=== PATIENT | female | born 1955 | race American Indian/Alaskan Native ===

== ENCOUNTER 2018-11-14 23:45 | Inpatient (IN) | payer MEDICARE, OTHER ==
[~2018-11-14] VITALS: Ht 152.4 cm; Wt 93.6 kg
[~2018-11-14 23:45] MED LIST: ALBU8HFA PO; AMIT150T PO; ATOR10TA70 PO; BETH5TAB PO; CLOP75TA33 PO; FERR325T28 PO; FURO40TA4 PO; GABA-530 PO; INSU100V11 SQ; INSU100V9 SQ; ISOS30TA6 PO; LEVO150T8 PO; LEVO500T2 PO; METO-384 PO; MONT10TA24 PO; NITR0.4T PO; PANT40TA4 PO; POTA20TA19 PO
[2018-11-14] MEDS: adenosine 3mg/ml 2ml vial IV ONE (23:53)
[2018-11-15] MEDS: adenosine 3mg/ml 2ml vial IV ONE (00:12)
[2018-11-15] MEDS ORDERED: diltiazem 5mg/ml 5ml inj. IV STA (00:20)
[2018-11-15] MEDS ORDERED: magnesium 2GM in 50ml NS 50 ML IV ONE (00:30)
[2018-11-15 00:48] LABS: CLARITY,URINE CLOUDY (Clear); COLOR,URINE YELLOW (Yellow); GLUCOSE, URINE NEGATIVE (Neg); KETONES,URINE NEGATIVE (Neg); LEUKOCYTE ESTERASE ,URINE TRACE (Neg); NITRITES, URINE NEGATIVE (Neg); OCCULT BLOOD,URINE NEGATIVE (Neg); PROTEIN,URINE NEGATIVE (Neg)
[2018-11-15 00:49] LABS: BASOPHILS # (AUTO) 0.1 X10'3 (0-0.2); BASOPHILS % (AUTO) 0.7 % (0-1); EOSINOPHILS # (AUTO) 0.1 X10'3 (0-0.9); EOSINOPHILS % (AUTO) 0.6 % (0-6); HEMATOCRIT 37.8 % (35.0-45.0); HEMOGLOBIN 12.2 g/dl (12.0-16.0); LYMPHOCYTES # (AUTO) 0.4 X10'3 (1.1-4.8); LYMPHOCYTES % (AUTO) 3.2 % (21-51); MEAN CORPUSCULAR HEMOGLOBIN 29.3 PG (27.0-31.0); MEAN CORPUSCULAR HGB CONC 32.3 % (33.0-36.5); MEAN CORPUSCULAR VOLUME 90.6 FL (78-98); MEAN PLATELET VOLUME 7.7 FL (7.4-10.4); MONOCYTES % (AUTO) 0.3 % (2-12); NEUTROPHILS # (AUTO) 10.6 X10'3 (1.8-7.7); NEUTROPHILS % (AUTO) 95.2 % (42-75); PLATELET COUNT 236 X10'3 (140-440); RED BLOOD COUNT 4.17 X10'6 (4.20-5.60); RED CELL DISTRIBUTION WIDTH 13.2 % (11.5-14.5); WHITE BLOOD COUNT 11.2 X10'3 (4.5-11.0)
[2018-11-15 00:57] LABS: ALANINE AMINOTRANSFERASE 22 U/L (12-78); ALBUMIN 2.8 G/DL (3.4-5.0); ALBUMIN/GLOBULIN RATIO 0.7 (1.1-1.5); ALKALINE PHOSPHATASE 125 IU/L (46-116); ANION GAP 15 (8-16); ASPARTATE AMINO TRANSFERASE 25 U/L (10-37); BILIRUBIN,TOTAL 0.9 MG/DL (0.1-1.0); BLOOD UREA NITROGEN 16 MG/DL (7-18); CALCIUM 7.8 MG/DL (8.5-10.1); CHLORIDE 103 MMOL/L (99-107); CREATININE 1.14 MG/DL (0.40-0.90); GLUCOSE 140 MG/DL (70-104); MAGNESIUM 1.4 MG/DL (1.5-2.4); POTASSIUM 3.3 MMOL/L (3.5-5.1); SODIUM 138 MMOL/L (135-145); TOTAL CARBON DIOXIDE 20.1 MMOL/L (24-32); TOTAL PROTEIN 6.8 G/DL (6.4-8.2); eGFR 48 ML/MIN
[2018-11-15 00:59] LABS: UA COLLECTION TYPE CLN CATCH MIDSTREAM
[2018-11-15 01:00] LABS: AMORPHOUS URATES 3+; BACTERIA,URINE FEW /HPF (Neg); RBC,URINE NONE SEEN /HPF (0-2); SQUAMOUS EPITHELIAL CELL,UR FEW /LPF (FEW)
[2018-11-15 01:12] LABS: INR 1.1 INR; PARTIAL THROMBOPLASTIN TIME 33 SECONDS (22-32); PROTHROMBIN TIME 11.5 SECONDS (9.0-12.0)
[2018-11-15] MEDS ORDERED: normal saline 1000ml 1,000 ML IV ONE ×2 (01:45→02:30)
[2018-11-15] MEDS ORDERED: magnesium 2GM in 50ml NS 50 ML IV STA (01:46)
--- NOTE | 2018-11-15 02:27 | NUR ---
dr gamboa aware of pts bp. orders expected. also aware of trop. no orders expected due to allergy to aspirin and already took nightly plavix.
[2018-11-15] MEDS ORDERED: calcium chloride inj. 1,000 MG in normal saline 100ml IV soln 90 ML IV ONE (02:30)
[2018-11-15] MEDS ORDERED: levoFLOXACIN-Levaquin 500mg/D5 100 ML IV ONE (02:50)
[2018-11-15] MEDS: NORepinephrine 8mg/ 250ml NS 250 ML IV PRN ×3 (03:43→15:04)
--- NOTE | 2018-11-15 03:56 | NUR ---
ATTEMPTED TO SEND [employer] PATIENT PACER INFORMATION. 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
--- NOTE | 2018-11-15 04:03 | NUR ---
[employer] REP RECEIVED REPORT AND TALKED TO THE DOCTOR ABOUT WHAT HE THOUGHT WAS GOING ON. THE REPORT WILL BE FAXED AND PLACED ON CHART.
--- NOTE | 2018-11-15 04:32 | NUR ---
positive central line placement by dr gamboa
--- NOTE | 2018-11-15 04:36 | NUR ---
levophed moved from right wrist piv to rij central line. piv flushed. no swelling or redness noted
--- NOTE | 2018-11-15 05:08 | NUR ---
DR MCDONALD AWARE OF INCREASED TROP. SAID IT IS AN EXPECTED VALUE
[2018-11-15] MEDS ORDERED: NORepinephrine 8mg/ 250ml NS 250 ML IV PRN (05:22)
[2018-11-15] MEDS ORDERED: ondansetron/PF 4mg/2ml inj IV PRN (05:25)
[2018-11-15] MEDS ORDERED: magnesium 2GM in 50ml NS 50 ML IV PRN (05:25)
[2018-11-15] MEDS ORDERED: MESSAGE TO PHARMACY PO ONE (05:25)
[2018-11-15] MEDS ORDERED: dextrose ORAL solution 15 GM/59 ML bottle PO PRN ×2 (05:25)
[2018-11-15] MEDS ORDERED: magnesium 4gm in 100ml NS 100 ML IV PRN (05:25)
[2018-11-15] MEDS ORDERED: magnesium Cl slow-release 64mg tablet PO PRN (05:25)
[2018-11-15] MEDS ORDERED: potassium Cl 40MEQ/250ML bag 250 ML IV PRN ×2 (05:25)
[2018-11-15] MEDS ORDERED: magnesium hydroxide 30ml (MOM) UD suspension PO PRN (05:25)
[2018-11-15] MEDS ORDERED: dextrose 50%-water 50ml dispensing syringe IV PRN ×2 (05:25)
[2018-11-15] MEDS ORDERED: glucagon, human recombinant 1mg kit SUBCUT PRN (05:25)
[2018-11-15] MEDS ORDERED: acetaminophen 325mg tablet PO PRN ×2 (05:25)
[2018-11-15] MEDS ORDERED: nitroGLYCERIN 0.4mg SUBLingual tab SL PRN (05:55)
--- NOTE | 2018-11-15 06:13 | NUR ---
CALLED PHARMACY ABOUT AZACTAM. STATED TECH IS MAKING IT NOW AND WILL BE BROUGHT TO ER
[2018-11-15] MEDS ORDERED: albuterol 2.5 MG/3 ML nebule NEB PRN (06:15)
[2018-11-15] MEDS: aztreonam inj. 2,000 MG in dextrose 5%-water 100 ML IV SCH ×3 (06:54→16:59)
[2018-11-15] MEDS: clopidogrel 75mg tablet PO SCH (08:00)
[2018-11-15] MEDS: K, MAG and/or Phos replacement - Verify level? MC SCH (08:00)
[2018-11-15] MEDS: furosemide 20MG tablet PO SCH (08:00)
[2018-11-15] MEDS ORDERED: INSULIN GLARGINE HUM REC ANLOG 65 UNIT SQ SCH (08:00)
[2018-11-15] MEDS: metoprolol succinate 25mg (24-HOUR) SR. Tablet PO SCH (08:00)
[2018-11-15 08:31] LABS: OXYGEN SATURATION (MIXED VEN) 75.1 % (60-80); PO2 MIXED VENOUS (TEMP COR) 39.8 mmHg (35-46)
[2018-11-15] MEDS ORDERED: NORepinephrine bitartrate 8 MG in NS 250 ML BAG (32 mcg/ml) IV ONE (09:00)
[2018-11-15] MEDS ORDERED: etomidate 2mg/ml inj. ONE (09:00)
[2018-11-15] MEDS ORDERED: adenosine 3mg/ml 2ml vial IV ONE (09:00)
[2018-11-15] MEDS ORDERED: 0.9 % SODIUM CHLORIDE 10 ML VIAL ONE (09:00)
[2018-11-15] MEDS: docusate sod 100mg capsule PO SCH ×2 (09:46→20:10)
[2018-11-15] MEDS: levoTHYROXINE 75mcg tablet PO SCH (09:46)
[2018-11-15] MEDS: ferrous sulfate 325mg tablet PO SCH ×2 (09:46→19:23)
[2018-11-15] MEDS: pantoprazole 40mg Tablet.DR PO SCH (09:47)
[2018-11-15] MEDS: atorvastatin 10mg tablet PO SCH (09:47)
[2018-11-15] MEDS: vancomycin/NS 1 GM ADD-VANTAGE 250 ML IV SCH ×2 (09:52→19:22)
[2018-11-15] MEDS ORDERED: LIDOcaine 1.5% w/epinephrine 1:200,000 5ml ampul IJ ONE (09:55)
[2018-11-15] MEDS ORDERED: LIDOcaine 1% w/epiNEPHrine 1:200,000 30ml vial IJ ONE (10:00)
[2018-11-15] MEDS ORDERED: fentaNYL/PF 50MCG/1 ML 2ML syringe IV ONE (10:35)
[2018-11-15] MEDS ORDERED: ondansetron/PF 4mg/2ml inj IV ONE (11:15)
[2018-11-15] MEDS: heparin, porcine 5000 units/ml vial SQ SCH ×2 (11:56→20:12)
[2018-11-15] MEDS: bethanechol 10mg tablet PO SCH ×3 (12:01→20:39)
[2018-11-15] MEDS: potassium Cl 20 mEq SR tablet PO PRN (12:01)
--- NOTE | 2018-11-15 15:09 | NUR ---
Pt BP decreased with MAP of 63, Levophed increased per protocol by 1mcg/min.
--- NOTE | 2018-11-15 19:05 | NUR ---
Levophed decreased 1ml hr; map 75
[2018-11-15] MEDS: amitryptiline 50mg tablet PO SCH (20:12)
[2018-11-15] MEDS: gabapentin 100mg capsule PO SCH (20:12)
[2018-11-15] MEDS: montelukast 10mg tablet PO SCH (20:12)
[2018-11-15] MEDS: insulin glargine (Lantus) pen - multi-dose SQ SCH (20:15)
[2018-11-15 20:43] LABS: ALANINE AMINOTRANSFERASE 22 U/L (12-78); ALBUMIN 2.6 G/DL (3.4-5.0); ALBUMIN/GLOBULIN RATIO 0.6 (1.1-1.5); ALKALINE PHOSPHATASE 95 IU/L (46-116); ANION GAP 11 (8-16); ASPARTATE AMINO TRANSFERASE 20 U/L (10-37); BILIRUBIN,TOTAL 0.6 MG/DL (0.1-1.0); BLOOD UREA NITROGEN 16 MG/DL (7-18); BUN/CREATININE RATIO 13.8 (6.6-38.0); CHLORIDE 103 MMOL/L (99-107); CREATININE 1.16 MG/DL (0.40-0.90); GLUCOSE 291 MG/DL (70-104); MAGNESIUM 2.1 MG/DL (1.5-2.4); PHOSPHORUS 2.2 MG/DL (2.3-4.5); POTASSIUM 3.8 MMOL/L (3.5-5.1); SODIUM 136 MMOL/L (135-145); TOTAL CARBON DIOXIDE 21.7 MMOL/L (24-32); TOTAL PROTEIN 6.7 G/DL (6.4-8.2); eGFR 47 ML/MIN
[2018-11-16] MEDS: aztreonam inj. 2,000 MG in dextrose 5%-water 100 ML IV SCH ×3 (00:55→16:00)
[2018-11-16] MEDS: HYDROcodone/acetaminophen 5mg/325mg tablet PO PRN ×2 (04:09→19:46)
--- NOTE | 2018-11-16 04:15 | NUR ---
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 No wallet/harris.
--- NOTE | 2018-11-16 04:35 | NUR ---
pt placed on hospital bed
[2018-11-16] MEDS: vancomycin/NS 1 GM ADD-VANTAGE 250 ML IV SCH ×2 (07:14→19:45)
[2018-11-16] MEDS: K, MAG and/or Phos replacement - Verify level? MC SCH (08:00)
[2018-11-16 08:36] LABS: BASOPHILS % (AUTO) 0.5 % (0-1); EOSINOPHILS # (AUTO) 0.4 X10'3 (0-0.9); HEMATOCRIT 34.3 % (35.0-45.0); HEMOGLOBIN 11.1 g/dl (12.0-16.0); LYMPHOCYTES # (AUTO) 1.8 X10'3 (1.1-4.8); MEAN CORPUSCULAR HEMOGLOBIN 29.2 PG (27.0-31.0); MEAN CORPUSCULAR HGB CONC 32.5 % (33.0-36.5); MEAN PLATELET VOLUME 7.9 FL (7.4-10.4); MONOCYTES % (AUTO) 10.1 % (2-12); NEUTROPHILS # (AUTO) 6.5 X10'3 (1.8-7.7); NEUTROPHILS % (AUTO) 66.4 % (42-75); PLATELET COUNT 211 X10'3 (140-440); RED BLOOD COUNT 3.81 X10'6 (4.20-5.60); WHITE BLOOD COUNT 9.7 X10'3 (4.5-11.0)
[2018-11-16 08:38] LABS: ALANINE AMINOTRANSFERASE 20 U/L (12-78); ALBUMIN 2.4 G/DL (3.4-5.0); ALBUMIN/GLOBULIN RATIO 0.6 (1.1-1.5); ALKALINE PHOSPHATASE 86 IU/L (46-116); ANION GAP 10 (8-16); ASPARTATE AMINO TRANSFERASE 13 U/L (10-37); BILIRUBIN,TOTAL 0.4 MG/DL (0.1-1.0); BLOOD UREA NITROGEN 16 MG/DL (7-18); BUN/CREATININE RATIO 15.5 (6.6-38.0); CALCIUM 8.2 MG/DL (8.5-10.1); CHLORIDE 106 MMOL/L (99-107); CREATININE 1.03 MG/DL (0.40-0.90); GLUCOSE 159 MG/DL (70-104); MAGNESIUM 2.1 MG/DL (1.5-2.4); PHOSPHORUS 2.6 MG/DL (2.3-4.5); POTASSIUM 3.8 MMOL/L (3.5-5.1); SODIUM 139 MMOL/L (135-145); TOTAL CARBON DIOXIDE 23.5 MMOL/L (24-32); TOTAL PROTEIN 6.4 G/DL (6.4-8.2); VANCOMYCIN,RANDOM 30.5 UG/ML; eGFR 54 ML/MIN
[2018-11-16] MEDS: metoprolol succinate 25mg (24-HOUR) SR. Tablet PO SCH (08:49)
[2018-11-16] MEDS: furosemide 20MG tablet PO SCH (08:49)
[2018-11-16] MEDS: levoTHYROXINE 75mcg tablet PO SCH (08:49)
[2018-11-16] MEDS: docusate sod 100mg capsule PO SCH ×2 (08:49→19:46)
[2018-11-16] MEDS: atorvastatin 10mg tablet PO SCH (08:49)
[2018-11-16] MEDS: bethanechol 10mg tablet PO SCH ×3 (08:49→20:00)
[2018-11-16] MEDS: clopidogrel 75mg tablet PO SCH (08:49)
[2018-11-16] MEDS: pantoprazole 40mg Tablet.DR PO SCH (08:49)
[2018-11-16] MEDS: ferrous sulfate 325mg tablet PO SCH ×2 (08:51→18:53)
[2018-11-16 08:53] LABS: INR 1.1 INR; PARTIAL THROMBOPLASTIN TIME 38 SECONDS (22-32); PROTHROMBIN TIME 10.9 SECONDS (9.0-12.0)
[2018-11-16] MEDS: heparin, porcine 5000 units/ml vial SQ SCH ×2 (08:56→19:45)
[2018-11-16 11:00] VITALS: BP 129/70
[2018-11-16] MEDS ORDERED: VANCOMYCIN LEVEL IV ONE (18:30)
--- NOTE | 2018-11-16 18:58 | NUR ---
Problems reprioritized. Patient report given, questions answered & plan of care reviewed with Genevieve FLOYD.
[2018-11-16 19:00] VITALS: BP 123/57
--- NOTE | 2018-11-16 19:10 | NUR ---
Patient in room PCU 3025. I have received report from EUGENIO FLOYD and had the opportunity to ask questions and assume patient care. CENTRAL LINE DRESSING HANGING OFF NECK; NEW DRESSING PLACED WITH STAT LOCK. IN NO DISTRESS
--- NOTE | 2018-11-16 19:40 | NUR ---
pharm messaged no insulin in box
[2018-11-16] MEDS: lactobacillus rhamnosus 10,000 MMU CELLS/CAPSULE PO SCH (19:46)
[2018-11-16] MEDS: amitryptiline 50mg tablet PO SCH (20:00)
[2018-11-16] MEDS: montelukast 10mg tablet PO SCH (20:00)
[2018-11-16] MEDS: gabapentin 100mg capsule PO SCH (20:00)
[2018-11-16] MEDS: insulin glargine (Lantus) pen - multi-dose SQ SCH (22:02)
[2018-11-16 23:00] VITALS: BP 129/59
[2018-11-17] MEDS: aztreonam inj. 2,000 MG in dextrose 5%-water 100 ML IV SCH ×3 (00:29→16:36)
--- NOTE | 2018-11-17 01:13 | NUR ---
EDUCATED PATIENT THAT WE NEED A SPUTUM SAMPLE; AWAITING SAMPLE AT THIS TIME
[2018-11-17 02:56] VITALS: BP 126/62
[2018-11-17] MEDS: HYDROcodone/acetaminophen 5mg/325mg tablet PO PRN ×3 (04:06→20:36)
[2018-11-17 05:03] LABS: BASOPHILS % (AUTO) 0.6 % (0-1); EOSINOPHILS # (AUTO) 0.5 X10'3 (0-0.9); EOSINOPHILS % (AUTO) 6.9 % (0-6); HEMATOCRIT 33.6 % (35.0-45.0); HEMOGLOBIN 10.9 g/dl (12.0-16.0); LYMPHOCYTES % (AUTO) 28.2 % (21-51); MEAN CORPUSCULAR HGB CONC 32.5 % (33.0-36.5); MEAN CORPUSCULAR VOLUME 89.4 FL (78-98); MEAN PLATELET VOLUME 7.7 FL (7.4-10.4); MONOCYTES # (AUTO) 0.7 X10'3 (0-0.9); NEUTROPHILS # (AUTO) 3.9 X10'3 (1.8-7.7); NEUTROPHILS % (AUTO) 54.3 % (42-75); PLATELET COUNT 247 X10'3 (140-440); RED BLOOD COUNT 3.76 X10'6 (4.20-5.60); RED CELL DISTRIBUTION WIDTH 12.7 % (11.5-14.5); WHITE BLOOD COUNT 7.1 X10'3 (4.5-11.0)
[2018-11-17 05:07] LABS: PARTIAL THROMBOPLASTIN TIME 37 SECONDS (22-32); PROTHROMBIN TIME 10.5 SECONDS (9.0-12.0)
[2018-11-17 05:19] LABS: ALANINE AMINOTRANSFERASE 19 U/L (12-78); ALBUMIN 2.4 G/DL (3.4-5.0); ALBUMIN/GLOBULIN RATIO 0.6 (1.1-1.5); ALKALINE PHOSPHATASE 86 IU/L (46-116); ANION GAP 10 (8-16); ASPARTATE AMINO TRANSFERASE 14 U/L (10-37); BILIRUBIN,TOTAL 0.4 MG/DL (0.1-1.0); BLOOD UREA NITROGEN 15 MG/DL (7-18); BUN/CREATININE RATIO 15.3 (6.6-38.0); CHLORIDE 105 MMOL/L (99-107); CREATININE 0.98 MG/DL (0.40-0.90); GLUCOSE 153 MG/DL (70-104); MAGNESIUM 1.9 MG/DL (1.5-2.4); PHOSPHORUS 2.9 MG/DL (2.3-4.5); POTASSIUM 3.3 MMOL/L (3.5-5.1); SODIUM 140 MMOL/L (135-145); TOTAL CARBON DIOXIDE 25.4 MMOL/L (24-32); TOTAL PROTEIN 6.4 G/DL (6.4-8.2); eGFR 57 ML/MIN
[2018-11-17 06:00] VITALS: BP 118/48
--- NOTE | 2018-11-17 06:42 | NUR ---
Patient in room PCU 3025. I have received report from Genevieve FLOYD and had the opportunity to ask questions and assume patient care. Patient resting comfortably in bed. In no acute distress at this time. Will continue to monitor.
--- NOTE | 2018-11-17 06:46 | NUR ---
Problems reprioritized. Patient report given, questions answered & plan of care reviewed with anish guido. patient asleep in no distress
[2018-11-17] MEDS: vancomycin/NS 1 GM ADD-VANTAGE 250 ML IV SCH ×2 (07:43→19:32)
[2018-11-17] MEDS: heparin, porcine 5000 units/ml vial SQ SCH ×2 (07:44→20:27)
[2018-11-17] MEDS: bethanechol 10mg tablet PO SCH ×3 (07:44→20:29)
[2018-11-17] MEDS: potassium Cl 20 mEq SR tablet PO PRN ×3 (07:45→21:54)
[2018-11-17] MEDS: furosemide 20MG tablet PO SCH (07:45)
[2018-11-17] MEDS: levoTHYROXINE 75mcg tablet PO SCH (07:45)
[2018-11-17] MEDS: clopidogrel 75mg tablet PO SCH (07:45)
[2018-11-17] MEDS: lactobacillus rhamnosus 10,000 MMU CELLS/CAPSULE PO SCH ×2 (07:45→20:27)
[2018-11-17] MEDS: metoprolol succinate 25mg (24-HOUR) SR. Tablet PO SCH (07:45)
[2018-11-17] MEDS: atorvastatin 10mg tablet PO SCH (07:45)
[2018-11-17] MEDS: docusate sod 100mg capsule PO SCH ×2 (07:45→20:28)
[2018-11-17] MEDS: ferrous sulfate 325mg tablet PO SCH ×2 (07:45→16:36)
[2018-11-17] MEDS: pantoprazole 40mg Tablet.DR PO SCH (07:45)
[2018-11-17] MEDS: K, MAG and/or Phos replacement - Verify level? MC SCH (08:25)
[2018-11-17] MEDS: insulin Lispro (HumaLOG) vial - multi-dose SQ SCH ×3 (09:14→19:26)
[2018-11-17 11:00] VITALS: BP 126/51
--- NOTE | 2018-11-17 13:18 | NUR ---
DM education. A1C 7.7 Met pt at bedside gave written and verbal DM education. Pt lives out of town and can't afford gas to come to classes. Pt sees on regular basis, checks BS x 3 days, follows DM diet, and exercises. Pt recently diagnosed with breast x 1 month. LBM 11/14/18. Will continue to monitor. Addendum: 11/17/18 at [address] Amended: Links added.
[2018-11-17 15:00] VITALS: BP 126/56
--- NOTE | 2018-11-17 18:42 | NUR ---
Problems reprioritized. Patient report given, questions answered & plan of care reviewed with Genevieve FLOYD.
--- NOTE | 2018-11-17 18:58 | NUR ---
Patient in room PCU 3025. I have received report from Nora FLOYD and had the opportunity to ask questions and assume patient care.
[2018-11-17 19:00] VITALS: BP 144/46
[2018-11-17] MEDS: gabapentin 100mg capsule PO SCH (20:28)
[2018-11-17] MEDS: amitryptiline 50mg tablet PO SCH (20:28)
[2018-11-17] MEDS: montelukast 10mg tablet PO SCH (20:28)
[2018-11-17] MEDS: insulin glargine (Lantus) pen - multi-dose SQ SCH (20:56)
[2018-11-17 23:00] VITALS: BP 152/68
--- NOTE | 2018-11-17 23:34 | NUR ---
Patient's left pupil appears large and somewhat grayish. Minimal response to light. Patient states that she was stuck in the eye with a pinecone as a child. However, she sees well out of that eye, she says. Addendum: 11/17/18 at 2342 by Abiel Barone RN Amended: Links added.
[2018-11-18] MEDS: aztreonam inj. 2,000 MG in dextrose 5%-water 100 ML IV SCH ×3 (00:35→19:00)
[2018-11-18 03:00] VITALS: BP 116/69
[2018-11-18 06:00] VITALS: BP 116/76
[2018-11-18 06:03] LABS: BASOPHILS % (AUTO) 0.6 % (0-1); EOSINOPHILS # (AUTO) 0.4 X10'3 (0-0.9); EOSINOPHILS % (AUTO) 6.8 % (0-6); HEMATOCRIT 34.5 % (35.0-45.0); HEMOGLOBIN 11.3 g/dl (12.0-16.0); LYMPHOCYTES # (AUTO) 2.1 X10'3 (1.1-4.8); LYMPHOCYTES % (AUTO) 31.5 % (21-51); MEAN CORPUSCULAR HEMOGLOBIN 29.2 PG (27.0-31.0); MEAN CORPUSCULAR HGB CONC 32.9 % (33.0-36.5); MEAN CORPUSCULAR VOLUME 88.8 FL (78-98); MEAN PLATELET VOLUME 7.6 FL (7.4-10.4); MONOCYTES # (AUTO) 0.5 X10'3 (0-0.9); MONOCYTES % (AUTO) 6.9 % (2-12); NEUTROPHILS # (AUTO) 3.6 X10'3 (1.8-7.7); NEUTROPHILS % (AUTO) 54.2 % (42-75); PLATELET COUNT 248 X10'3 (140-440); RED BLOOD COUNT 3.88 X10'6 (4.20-5.60); RED CELL DISTRIBUTION WIDTH 13.8 % (11.5-14.5); WHITE BLOOD COUNT 6.6 X10'3 (4.5-11.0)
--- NOTE | 2018-11-18 06:07 | NUR ---
Problems reprioritized. Patient report given, questions answered & plan of care reviewed with anish guido.
--- NOTE | 2018-11-18 06:30 | NUR ---
Patient in room PCU 3025. I have received report from Genevieve FLOYD and had the opportunity to ask questions and assume patient care. Patient complaining of neck ache and requesting PRN norco. will admin med and continue to monitor.
[2018-11-18 06:31] LABS: ALANINE AMINOTRANSFERASE 17 U/L (12-78); ALBUMIN 2.4 G/DL (3.4-5.0); ALBUMIN/GLOBULIN RATIO 0.6 (1.1-1.5); ALKALINE PHOSPHATASE 82 IU/L (46-116); ANION GAP 10 (8-16); ASPARTATE AMINO TRANSFERASE 16 U/L (10-37); BILIRUBIN,TOTAL 0.3 MG/DL (0.1-1.0); BLOOD UREA NITROGEN 13 MG/DL (7-18); BUN/CREATININE RATIO 15.7 (6.6-38.0); CHLORIDE 105 MMOL/L (99-107); CREATININE 0.83 MG/DL (0.40-0.90); GLUCOSE 111 MG/DL (70-104); MAGNESIUM 1.7 MG/DL (1.5-2.4); PHOSPHORUS 3.1 MG/DL (2.3-4.5); POTASSIUM 3.6 MMOL/L (3.5-5.1); SODIUM 141 MMOL/L (135-145); TOTAL CARBON DIOXIDE 25.6 MMOL/L (24-32); TOTAL PROTEIN 6.3 G/DL (6.4-8.2); eGFR 69 ML/MIN
--- NOTE | 2018-11-18 06:36 | NUR ---
Problems reprioritized. Patient report given, questions answered & plan of care reviewed with Thad FLOYD.
--- NOTE | 2018-11-18 06:37 | NUR ---
[facility] documentation: I have reviewed and agree with all interventions, assessments performed and documented by MATTHEW FLOYD.
--- NOTE | 2018-11-18 06:37 | NUR ---
[facility] Medication Administration: For this medication-pass time frame, all medication were reviewed, dispensed, administered and documented per hospital policy by MATTHEW FLODY.
[2018-11-18 06:38] LABS: PARTIAL THROMBOPLASTIN TIME 34 SECONDS (22-32); PROTHROMBIN TIME 10.3 SECONDS (9.0-12.0)
[2018-11-18] MEDS: bethanechol 10mg tablet PO SCH ×3 (07:29→21:00)
[2018-11-18] MEDS: vancomycin/NS 1 GM ADD-VANTAGE 250 ML IV SCH ×2 (07:29→21:21)
[2018-11-18] MEDS: clopidogrel 75mg tablet PO SCH (07:30)
[2018-11-18] MEDS: levoTHYROXINE 75mcg tablet PO SCH (07:30)
[2018-11-18] MEDS: atorvastatin 10mg tablet PO SCH (07:30)
[2018-11-18] MEDS: docusate sod 100mg capsule PO SCH ×2 (07:31→20:00)
[2018-11-18] MEDS: furosemide 20MG tablet PO SCH (07:31)
[2018-11-18] MEDS: ferrous sulfate 325mg tablet PO SCH ×2 (07:31→18:59)
[2018-11-18] MEDS: pantoprazole 40mg Tablet.DR PO SCH (07:31)
[2018-11-18] MEDS: lactobacillus rhamnosus 10,000 MMU CELLS/CAPSULE PO SCH ×2 (07:31→21:18)
[2018-11-18] MEDS: heparin, porcine 5000 units/ml vial SQ SCH ×2 (07:32→21:20)
[2018-11-18] MEDS: HYDROcodone/acetaminophen 5mg/325mg tablet PO PRN (07:33)
[2018-11-18] MEDS: metoprolol succinate 25mg (24-HOUR) SR. Tablet PO SCH (07:33)
[2018-11-18] MEDS: K, MAG and/or Phos replacement - Verify level? MC SCH (07:38)
--- NOTE | 2018-11-18 09:22 | NUR ---
DM education. A1C 7.7 Met pt at bedside gave written and verbal DM education. Pt lives out of town and can't afford gas to come to classes. Pt sees on regular basis, checks BS 3 x per day, follows DM diet, and exercises. Pt recently diagnosied with breast cancer 1 month ago. LBM 11/14/18. Will continue to monitor. Addendum: 11/18/18 at [address] Amended: Links added. Addendum: 11/18/18 at [address] I have reviewed and approve of note by Market Specialist. Kavita Albrecht RD
[2018-11-18] MEDS: insulin Lispro (HumaLOG) vial - multi-dose SQ SCH ×2 (09:32→13:30)
[2018-11-18 11:00] VITALS: BP 120/37
[2018-11-18 15:00] VITALS: BP 104/45
--- NOTE | 2018-11-18 18:30 | NUR ---
Problems reprioritized. Patient report given, questions answered & plan of care reviewed with Abiel FLOYD.
--- NOTE | 2018-11-18 18:30 | NUR ---
[facility] documentation: I have reviewed and agree with all interventions, assessments performed and documented by Kiersten FLOYD. [facility] Medication Administration: For this medication-pass time frame, all medication were reviewed, dispensed, administered and documented per hospital policy by MARIEL Burch.
[2018-11-18 19:00] VITALS: BP 151/64
--- NOTE | 2018-11-18 19:00 | NUR ---
Patient in room PCU 3025. I have received report from Nora FLOYD and had the opportunity to ask questions and assume patient care.
[2018-11-18] MEDS: montelukast 10mg tablet PO SCH (21:18)
[2018-11-18] MEDS: gabapentin 100mg capsule PO SCH (21:19)
[2018-11-18] MEDS: amitryptiline 50mg tablet PO SCH (21:19)
[2018-11-18] MEDS: insulin glargine (Lantus) pen - multi-dose SQ SCH (21:48)
[2018-11-18 23:00] VITALS: BP 168/66
--- NOTE | 2018-11-18 23:15 | NUR ---
Spoke to SUNITHA Osuna regarding patient's BP 168/66. Reviewed patient's VS trends and BP meds and she stated to continue to monitor for now
[2018-11-19] MEDS: HYDROcodone/acetaminophen 5mg/325mg tablet PO PRN (01:07)
[2018-11-19] MEDS: aztreonam inj. 2,000 MG in dextrose 5%-water 100 ML IV SCH ×2 (01:08→09:17)
[2018-11-19 03:00] VITALS: BP 132/88
[2018-11-19 05:24] LABS: BASOPHILS % (AUTO) 0.4 % (0-1); EOSINOPHILS # (AUTO) 0.4 X10'3 (0-0.9); EOSINOPHILS % (AUTO) 5.7 % (0-6); HEMATOCRIT 36.8 % (35.0-45.0); HEMOGLOBIN 12.2 g/dl (12.0-16.0); LYMPHOCYTES # (AUTO) 2.4 X10'3 (1.1-4.8); LYMPHOCYTES % (AUTO) 31.9 % (21-51); MEAN CORPUSCULAR HEMOGLOBIN 29.1 PG (27.0-31.0); MEAN CORPUSCULAR HGB CONC 33.1 % (33.0-36.5); MEAN PLATELET VOLUME 7.6 FL (7.4-10.4); MONOCYTES # (AUTO) 0.7 X10'3 (0-0.9); MONOCYTES % (AUTO) 9.4 % (2-12); NEUTROPHILS # (AUTO) 3.9 X10'3 (1.8-7.7); NEUTROPHILS % (AUTO) 52.6 % (42-75); PLATELET COUNT 287 X10'3 (140-440); RED BLOOD COUNT 4.19 X10'6 (4.20-5.60); RED CELL DISTRIBUTION WIDTH 13.4 % (11.5-14.5); WHITE BLOOD COUNT 7.5 X10'3 (4.5-11.0)
[2018-11-19 05:40] LABS: PARTIAL THROMBOPLASTIN TIME 34 SECONDS (22-32); PROTHROMBIN TIME 10.5 SECONDS (9.0-12.0)
[2018-11-19 05:42] LABS: ALANINE AMINOTRANSFERASE 19 U/L (12-78); ALBUMIN 2.4 G/DL (3.4-5.0); ALBUMIN/GLOBULIN RATIO 0.6 (1.1-1.5); ALKALINE PHOSPHATASE 95 IU/L (46-116); ANION GAP 7 (8-16); ASPARTATE AMINO TRANSFERASE 22 U/L (10-37); BILIRUBIN,TOTAL 0.3 MG/DL (0.1-1.0); BLOOD UREA NITROGEN 13 MG/DL (7-18); BUN/CREATININE RATIO 14.8 (6.6-38.0); CALCIUM 8.3 MG/DL (8.5-10.1); CHLORIDE 104 MMOL/L (99-107); CREATININE 0.88 MG/DL (0.40-0.90); GLUCOSE 147 MG/DL (70-104); MAGNESIUM 1.6 MG/DL (1.5-2.4); PHOSPHORUS 3.6 MG/DL (2.3-4.5); SODIUM 141 MMOL/L (135-145); TOTAL CARBON DIOXIDE 29.6 MMOL/L (24-32); TOTAL PROTEIN 6.6 G/DL (6.4-8.2); eGFR 64 ML/MIN
[2018-11-19 06:00] VITALS: BP 123/66
[2018-11-19] MEDS: potassium Cl 20 mEq SR tablet PO PRN ×3 (06:13→17:22)
--- NOTE | 2018-11-19 06:18 | NUR ---
Problems reprioritized. Patient report given, questions answered & plan of care reviewed with Christine FLOYD.
[2018-11-19] MEDS: vancomycin/NS 1 GM ADD-VANTAGE 250 ML IV SCH ×2 (07:00→19:02)
[2018-11-19] MEDS: K, MAG and/or Phos replacement - Verify level? MC SCH (08:00)
[2018-11-19] MEDS: lactobacillus rhamnosus 10,000 MMU CELLS/CAPSULE PO SCH ×2 (08:00→20:03)
[2018-11-19] MEDS: docusate sod 100mg capsule PO SCH ×2 (08:00→20:03)
[2018-11-19] MEDS: metoprolol succinate 25mg (24-HOUR) SR. Tablet PO SCH (09:13)
[2018-11-19] MEDS: pantoprazole 40mg Tablet.DR PO SCH (09:14)
[2018-11-19] MEDS: levoTHYROXINE 75mcg tablet PO SCH (09:14)
[2018-11-19] MEDS: atorvastatin 10mg tablet PO SCH (09:15)
[2018-11-19] MEDS: clopidogrel 75mg tablet PO SCH (09:15)
[2018-11-19] MEDS: bethanechol 10mg tablet PO SCH ×3 (09:16→20:03)
[2018-11-19] MEDS: heparin, porcine 5000 units/ml vial SQ SCH ×2 (09:17→20:03)
[2018-11-19] MEDS: ferrous sulfate 325mg tablet PO SCH ×2 (09:22→17:22)
[2018-11-19] MEDS: furosemide 20MG tablet PO SCH (09:22)
--- NOTE | 2018-11-19 09:57 | NUR ---
Initial: Pt admitted with dysrhythmia, pt with atrial fibrillation with a rapid rate, now resolved per MD progress notes. Patient appears to be stable and gets wound care by the RN here for polymicrobial abscess of the buttock per MD progress notes. Pt currently on CHO controlled diet with documented PO intake 100% meeting nutrient needs with adequate protein to aid in wound healing. [facility] 11/17. Will continue to follow. Recommendations: 1) Continue with CHO controlled diet 2) Wt per rx Addendum: 11/19/18 at [address] Amended: Links added.
--- NOTE | 2018-11-19 11:20 | NUR ---
PAGER ID: [phone] MESSAGE: Christine FLOYD [id number] [place] Emerson pt.s K+ was 3.0, I'm replacing per protocol.
[2018-11-19] MEDS: insulin Lispro (HumaLOG) vial - multi-dose SQ SCH ×2 (13:33→19:10)
[2018-11-19 15:00] VITALS: BP 169/69
[2018-11-19 18:00] VITALS: BP 149/63
--- NOTE | 2018-11-19 18:00 | NUR ---
Patient in room PCU 3025. I have received report from Christine FLOYD and had the opportunity to ask questions and assume patient care.
[2018-11-19] MEDS: amitryptiline 50mg tablet PO SCH (20:03)
[2018-11-19] MEDS: gabapentin 100mg capsule PO SCH (20:04)
[2018-11-19] MEDS: montelukast 10mg tablet PO SCH (20:04)
[2018-11-19 22:00] VITALS: BP 135/68
[2018-11-19] MEDS: insulin glargine (Lantus) pen - multi-dose SQ SCH (23:12)
[2018-11-20 02:00] VITALS: BP 109/56
[2018-11-20 04:03] LABS: BASOPHILS # (AUTO) 0.1 X10'3 (0-0.2); BASOPHILS % (AUTO) 1.8 % (0-1); EOSINOPHILS # (AUTO) 0.4 X10'3 (0-0.9); EOSINOPHILS % (AUTO) 5.5 % (0-6); HEMATOCRIT 37.1 % (35.0-45.0); HEMOGLOBIN 12.3 g/dl (12.0-16.0); LYMPHOCYTES # (AUTO) 2.6 X10'3 (1.1-4.8); LYMPHOCYTES % (AUTO) 36.9 % (21-51); MEAN CORPUSCULAR HEMOGLOBIN 29.3 PG (27.0-31.0); MEAN CORPUSCULAR HGB CONC 33.3 % (33.0-36.5); MEAN CORPUSCULAR VOLUME 88.1 FL (78-98); MEAN PLATELET VOLUME 7.3 FL (7.4-10.4); MONOCYTES # (AUTO) 0.6 X10'3 (0-0.9); MONOCYTES % (AUTO) 7.9 % (2-12); NEUTROPHILS # (AUTO) 3.4 X10'3 (1.8-7.7); NEUTROPHILS % (AUTO) 47.9 % (42-75); PLATELET COUNT 311 X10'3 (140-440); RED BLOOD COUNT 4.21 X10'6 (4.20-5.60); RED CELL DISTRIBUTION WIDTH 13.8 % (11.5-14.5)
[2018-11-20 04:14] LABS: ALANINE AMINOTRANSFERASE 25 U/L (12-78); ALBUMIN 2.6 G/DL (3.4-5.0); ALBUMIN/GLOBULIN RATIO 0.6 (1.1-1.5); ALKALINE PHOSPHATASE 99 IU/L (46-116); ANION GAP 7 (8-16); ASPARTATE AMINO TRANSFERASE 29 U/L (10-37); BILIRUBIN,TOTAL 0.3 MG/DL (0.1-1.0); BLOOD UREA NITROGEN 13 MG/DL (7-18); BUN/CREATININE RATIO 14.8 (6.6-38.0); CALCIUM 8.7 MG/DL (8.5-10.1); CHLORIDE 105 MMOL/L (99-107); CREATININE 0.88 MG/DL (0.40-0.90); GLUCOSE 124 MG/DL (70-104); MAGNESIUM 1.8 MG/DL (1.5-2.4); PHOSPHORUS 3.7 MG/DL (2.3-4.5); POTASSIUM 3.5 MMOL/L (3.5-5.1); SODIUM 141 MMOL/L (135-145); TOTAL CARBON DIOXIDE 28.6 MMOL/L (24-32); TOTAL PROTEIN 6.8 G/DL (6.4-8.2); eGFR 64 ML/MIN
[2018-11-20 04:16] LABS: PARTIAL THROMBOPLASTIN TIME 34 SECONDS (22-32); PROTHROMBIN TIME 10.5 SECONDS (9.0-12.0)
[2018-11-20 06:00] VITALS: BP 118/67
[2018-11-20] MEDS: K, MAG and/or Phos replacement - Verify level? MC SCH (08:00)
[2018-11-20] MEDS: docusate sod 100mg capsule PO SCH ×2 (08:00→19:43)
[2018-11-20] MEDS: HYDROcodone/acetaminophen 5mg/325mg tablet PO PRN (08:11)
[2018-11-20] MEDS: metoprolol succinate 25mg (24-HOUR) SR. Tablet PO SCH (08:11)
[2018-11-20] MEDS: ferrous sulfate 325mg tablet PO SCH ×2 (08:12→17:08)
[2018-11-20] MEDS: lactobacillus rhamnosus 10,000 MMU CELLS/CAPSULE PO SCH ×2 (08:12→19:43)
[2018-11-20] MEDS: clopidogrel 75mg tablet PO SCH (08:12)
[2018-11-20] MEDS: levoTHYROXINE 75mcg tablet PO SCH (08:13)
[2018-11-20] MEDS: furosemide 20MG tablet PO SCH (08:13)
[2018-11-20] MEDS: atorvastatin 10mg tablet PO SCH (08:13)
[2018-11-20] MEDS: bethanechol 10mg tablet PO SCH ×3 (08:14→22:28)
[2018-11-20] MEDS: vancomycin/NS 1 GM ADD-VANTAGE 250 ML IV SCH ×2 (08:16→19:29)
[2018-11-20] MEDS: heparin, porcine 5000 units/ml vial SQ SCH ×2 (08:16→19:43)
[2018-11-20] MEDS: pantoprazole 40mg Tablet.DR PO SCH (08:18)
[2018-11-20 11:00] VITALS: BP 128/47
[2018-11-20] MEDS: insulin Lispro (HumaLOG) vial - multi-dose SQ SCH ×2 (13:29→19:40)
[2018-11-20 15:00] VITALS: BP 122/48
--- NOTE | 2018-11-20 18:30 | NUR ---
Patient in room PCU 3025. I have received report from MARIEL King and had the opportunity to ask questions and assume patient care.
[2018-11-20 19:00] VITALS: BP 120/66
[2018-11-20] MEDS: montelukast 10mg tablet PO SCH (22:28)
[2018-11-20] MEDS: amitryptiline 50mg tablet PO SCH (22:28)
[2018-11-20] MEDS: gabapentin 100mg capsule PO SCH (22:28)
[2018-11-20] MEDS: insulin glargine (Lantus) pen - multi-dose SQ SCH (22:41)
[2018-11-20 23:00] VITALS: BP 114/52
[2018-11-21 06:00] VITALS: BP 127/50
[2018-11-21 06:05] LABS: BASOPHILS % (AUTO) 0.5 % (0-1); EOSINOPHILS # (AUTO) 0.4 X10'3 (0-0.9); EOSINOPHILS % (AUTO) 5.3 % (0-6); HEMATOCRIT 37.8 % (35.0-45.0); HEMOGLOBIN 12.4 g/dl (12.0-16.0); LYMPHOCYTES # (AUTO) 2.3 X10'3 (1.1-4.8); LYMPHOCYTES % (AUTO) 28.7 % (21-51); MEAN CORPUSCULAR HEMOGLOBIN 29.2 PG (27.0-31.0); MEAN CORPUSCULAR HGB CONC 32.8 % (33.0-36.5); MEAN PLATELET VOLUME 7.3 FL (7.4-10.4); MONOCYTES # (AUTO) 0.6 X10'3 (0-0.9); NEUTROPHILS # (AUTO) 4.7 X10'3 (1.8-7.7); NEUTROPHILS % (AUTO) 58.5 % (42-75); PLATELET COUNT 314 X10'3 (140-440); RED BLOOD COUNT 4.25 X10'6 (4.20-5.60); RED CELL DISTRIBUTION WIDTH 13.7 % (11.5-14.5); WHITE BLOOD COUNT 8.1 X10'3 (4.5-11.0)
[2018-11-21 06:18] LABS: PARTIAL THROMBOPLASTIN TIME 32 SECONDS (22-32); PROTHROMBIN TIME 10.5 SECONDS (9.0-12.0)
--- NOTE | 2018-11-21 06:20 | NUR ---
Patient in room PCU 3025. I have received report from LORRAINE RN and had the opportunity to ask questions and assume patient care.
[2018-11-21 06:24] LABS: ALANINE AMINOTRANSFERASE 24 U/L (12-78); ALBUMIN 2.6 G/DL (3.4-5.0); ALBUMIN/GLOBULIN RATIO 0.6 (1.1-1.5); ALKALINE PHOSPHATASE 88 IU/L (46-116); ANION GAP 10 (8-16); ASPARTATE AMINO TRANSFERASE 33 U/L (10-37); BILIRUBIN,TOTAL 0.3 MG/DL (0.1-1.0); BLOOD UREA NITROGEN 12 MG/DL (7-18); BUN/CREATININE RATIO 12.1 (6.6-38.0); CALCIUM 8.6 MG/DL (8.5-10.1); CHLORIDE 106 MMOL/L (99-107); CREATININE 0.99 MG/DL (0.40-0.90); GLUCOSE 147 MG/DL (70-104); MAGNESIUM 1.9 MG/DL (1.5-2.4); PHOSPHORUS 3.7 MG/DL (2.3-4.5); POTASSIUM 3.2 MMOL/L (3.5-5.1); SODIUM 141 MMOL/L (135-145); TOTAL PROTEIN 6.7 G/DL (6.4-8.2); eGFR 56 ML/MIN
--- NOTE | 2018-11-21 06:30 | NUR ---
checked q1hr; slept at intervals with resp even and unlabored; no changes from earlier noted; report given to MARIEL Wallace
[2018-11-21] MEDS: ferrous sulfate 325mg tablet PO SCH ×2 (07:51→17:18)
[2018-11-21] MEDS: pantoprazole 40mg Tablet.DR PO SCH (07:51)
[2018-11-21] MEDS: lactobacillus rhamnosus 10,000 MMU CELLS/CAPSULE PO SCH ×2 (07:52→20:58)
[2018-11-21] MEDS: levoTHYROXINE 75mcg tablet PO SCH (07:52)
[2018-11-21] MEDS: metoprolol succinate 25mg (24-HOUR) SR. Tablet PO SCH (07:52)
[2018-11-21] MEDS: atorvastatin 10mg tablet PO SCH (07:52)
[2018-11-21] MEDS: HYDROcodone/acetaminophen 5mg/325mg tablet PO PRN ×2 (07:53→12:58)
[2018-11-21] MEDS: potassium Cl 20 mEq SR tablet PO PRN ×3 (07:53→17:18)
[2018-11-21] MEDS: clopidogrel 75mg tablet PO SCH (07:53)
[2018-11-21] MEDS: docusate sod 100mg capsule PO SCH ×2 (07:54→20:00)
[2018-11-21] MEDS: K, MAG and/or Phos replacement - Verify level? MC SCH (07:54)
[2018-11-21] MEDS: heparin, porcine 5000 units/ml vial SQ SCH ×2 (07:54→21:01)
[2018-11-21] MEDS: furosemide 20MG tablet PO SCH (07:54)
[2018-11-21] MEDS: vancomycin/NS 1 GM ADD-VANTAGE 250 ML IV SCH (07:55)
[2018-11-21] MEDS: bethanechol 10mg tablet PO SCH ×3 (08:03→21:00)
[2018-11-21] MEDS: insulin Lispro (HumaLOG) vial - multi-dose SQ SCH ×3 (09:21→18:43)
[2018-11-21 11:00] VITALS: BP 126/60
[2018-11-21 15:00] VITALS: BP 118/46
[2018-11-21 18:00] VITALS: BP 148/67
--- NOTE | 2018-11-21 18:25 | NUR ---
Patient in room PCU 3025B. I have received report from MARIEL VERGARA and had the opportunity to ask questions and assume patient care.
--- NOTE | 2018-11-21 18:25 | NUR ---
Problems reprioritized. Patient report given, questions answered & plan of care reviewed with ALEXIS FLOYD.
--- NOTE | 2018-11-21 20:20 | NUR ---
Gave report to MARIEL Reynoso on surgical floor. Transfered out.
[2018-11-21 20:30] VITALS: BP 151/57
[2018-11-21] MEDS: montelukast 10mg tablet PO SCH (20:57)
[2018-11-21] MEDS: gabapentin 100mg capsule PO SCH (20:58)
[2018-11-21] MEDS: amitryptiline 50mg tablet PO SCH (20:59)
[2018-11-21] MEDS: insulin glargine (Lantus) pen - multi-dose SQ SCH (21:12)
[2018-11-22] VITALS: BP 142/64
[2018-11-22 06:00] LABS: BASOPHILS % (AUTO) 0.4 % (0-1); EOSINOPHILS # (AUTO) 0.6 X10'3 (0-0.9); EOSINOPHILS % (AUTO) 7.8 % (0-6); HEMATOCRIT 37.1 % (35.0-45.0); HEMOGLOBIN 12.2 g/dl (12.0-16.0); LYMPHOCYTES # (AUTO) 2.4 X10'3 (1.1-4.8); LYMPHOCYTES % (AUTO) 29.7 % (21-51); MEAN CORPUSCULAR HEMOGLOBIN 29.3 PG (27.0-31.0); MEAN CORPUSCULAR HGB CONC 32.8 % (33.0-36.5); MEAN CORPUSCULAR VOLUME 89.3 FL (78-98); MEAN PLATELET VOLUME 7.4 FL (7.4-10.4); MONOCYTES # (AUTO) 0.5 X10'3 (0-0.9); MONOCYTES % (AUTO) 6.8 % (2-12); NEUTROPHILS # (AUTO) 4.4 X10'3 (1.8-7.7); NEUTROPHILS % (AUTO) 55.3 % (42-75); PLATELET COUNT 333 X10'3 (140-440); RED BLOOD COUNT 4.16 X10'6 (4.20-5.60); RED CELL DISTRIBUTION WIDTH 13.7 % (11.5-14.5); WHITE BLOOD COUNT 7.9 X10'3 (4.5-11.0)
[2018-11-22 06:11] LABS: PARTIAL THROMBOPLASTIN TIME 34 SECONDS (22-32); PROTHROMBIN TIME 10.1 SECONDS (9.0-12.0)
[2018-11-22 06:18] LABS: ALANINE AMINOTRANSFERASE 28 U/L (12-78); ALBUMIN 2.7 G/DL (3.4-5.0); ALBUMIN/GLOBULIN RATIO 0.7 (1.1-1.5); ALKALINE PHOSPHATASE 86 IU/L (46-116); ANION GAP 11 (8-16); ASPARTATE AMINO TRANSFERASE 41 U/L (10-37); BILIRUBIN,TOTAL 0.3 MG/DL (0.1-1.0); BLOOD UREA NITROGEN 11 MG/DL (7-18); BUN/CREATININE RATIO 12.6 (6.6-38.0); CALCIUM 8.4 MG/DL (8.5-10.1); CHLORIDE 107 MMOL/L (99-107); CREATININE 0.87 MG/DL (0.40-0.90); GLUCOSE 127 MG/DL (70-104); PHOSPHORUS 3.6 MG/DL (2.3-4.5); POTASSIUM 3.6 MMOL/L (3.5-5.1); SODIUM 142 MMOL/L (135-145); TOTAL CARBON DIOXIDE 24.5 MMOL/L (24-32); TOTAL PROTEIN 6.8 G/DL (6.4-8.2); eGFR 65 ML/MIN
--- NOTE | 2018-11-22 06:19 | NUR ---
Problems reprioritized. Patient report given, questions answered & plan of care reviewed with SHANNEN FLOYD.
--- NOTE | 2018-11-22 06:29 | NUR ---
Patient in room DELLA 355. I have received report from Edgardo FLOYD and had the opportunity to ask questions and assume patient care.
[2018-11-22 08:00] VITALS: BP 123/62
[2018-11-22] MEDS: K, MAG and/or Phos replacement - Verify level? MC SCH (08:00)
[2018-11-22] MEDS: docusate sod 100mg capsule PO SCH ×2 (08:00→19:40)
[2018-11-22] MEDS: clopidogrel 75mg tablet PO SCH (08:21)
[2018-11-22] MEDS: atorvastatin 10mg tablet PO SCH (08:21)
[2018-11-22] MEDS: ferrous sulfate 325mg tablet PO SCH ×2 (08:21→17:30)
[2018-11-22] MEDS: lactobacillus rhamnosus 10,000 MMU CELLS/CAPSULE PO SCH ×2 (08:21→19:39)
[2018-11-22] MEDS: pantoprazole 40mg Tablet.DR PO SCH (08:22)
[2018-11-22] MEDS: heparin, porcine 5000 units/ml vial SQ SCH ×2 (08:22→19:39)
[2018-11-22] MEDS: metoprolol succinate 25mg (24-HOUR) SR. Tablet PO SCH (08:22)
[2018-11-22] MEDS: furosemide 20MG tablet PO SCH (08:22)
[2018-11-22] MEDS: levoTHYROXINE 75mcg tablet PO SCH (08:22)
[2018-11-22] MEDS: bethanechol 10mg tablet PO SCH ×3 (08:23→21:22)
[2018-11-22] MEDS: insulin Lispro (HumaLOG) vial - multi-dose SQ SCH ×3 (08:33→19:38)
[2018-11-22] MEDS: HYDROcodone/acetaminophen 5mg/325mg tablet PO PRN ×2 (08:37→20:21)
[2018-11-22] MEDS: levoFLOXACIN 500mg tablet PO SCH (10:43)
[2018-11-22 12:00] VITALS: BP 148/63
[2018-11-22 18:00] VITALS: BP 100/58
--- NOTE | 2018-11-22 18:30 | NUR ---
Patient in room DELLA 355. I have received report from Irais FLOYD and had the opportunity to ask questions and assume patient care.
--- NOTE | 2018-11-22 18:38 | NUR ---
Problems reprioritized. Patient report given, questions answered & plan of care reviewed with Brooke Velasco.
[2018-11-22] MEDS: insulin glargine (Lantus) pen - multi-dose SQ SCH (21:21)
[2018-11-22] MEDS: gabapentin 100mg capsule PO SCH (21:22)
[2018-11-22] MEDS: montelukast 10mg tablet PO SCH (21:22)
[2018-11-22] MEDS: amitryptiline 50mg tablet PO SCH (21:22)
[2018-11-23] VITALS: BP 148/65
[2018-11-23 06:06] LABS: BASOPHILS % (AUTO) 0.4 % (0-1); EOSINOPHILS # (AUTO) 0.4 X10'3 (0-0.9); EOSINOPHILS % (AUTO) 6.4 % (0-6); HEMATOCRIT 36.2 % (35.0-45.0); HEMOGLOBIN 12.1 g/dl (12.0-16.0); LYMPHOCYTES # (AUTO) 2.5 X10'3 (1.1-4.8); LYMPHOCYTES % (AUTO) 36.2 % (21-51); MEAN CORPUSCULAR HEMOGLOBIN 29.7 PG (27.0-31.0); MEAN CORPUSCULAR HGB CONC 33.6 % (33.0-36.5); MEAN CORPUSCULAR VOLUME 88.6 FL (78-98); MEAN PLATELET VOLUME 7.7 FL (7.4-10.4); MONOCYTES # (AUTO) 0.5 X10'3 (0-0.9); MONOCYTES % (AUTO) 7.1 % (2-12); NEUTROPHILS # (AUTO) 3.4 X10'3 (1.8-7.7); NEUTROPHILS % (AUTO) 49.9 % (42-75); PLATELET COUNT 313 X10'3 (140-440); RED BLOOD COUNT 4.08 X10'6 (4.20-5.60); RED CELL DISTRIBUTION WIDTH 13.8 % (11.5-14.5); WHITE BLOOD COUNT 6.9 X10'3 (4.5-11.0)
[2018-11-23 06:21] LABS: PARTIAL THROMBOPLASTIN TIME 33 SECONDS (22-32); PROTHROMBIN TIME 10.5 SECONDS (9.0-12.0)
[2018-11-23 06:26] LABS: ALANINE AMINOTRANSFERASE 25 U/L (12-78); ALBUMIN 2.8 G/DL (3.4-5.0); ALBUMIN/GLOBULIN RATIO 0.7 (1.1-1.5); ALKALINE PHOSPHATASE 83 IU/L (46-116); ANION GAP 13 (8-16); ASPARTATE AMINO TRANSFERASE 36 U/L (10-37); BILIRUBIN,TOTAL 0.3 MG/DL (0.1-1.0); BLOOD UREA NITROGEN 12 MG/DL (7-18); BUN/CREATININE RATIO 14.5 (6.6-38.0); CALCIUM 8.4 MG/DL (8.5-10.1); CHLORIDE 106 MMOL/L (99-107); CREATININE 0.83 MG/DL (0.40-0.90); GLUCOSE 145 MG/DL (70-104); POTASSIUM 3.2 MMOL/L (3.5-5.1); SODIUM 141 MMOL/L (135-145); TOTAL CARBON DIOXIDE 22.5 MMOL/L (24-32); TOTAL PROTEIN 6.8 G/DL (6.4-8.2); eGFR 69 ML/MIN
[2018-11-23 06:30] VITALS: BP 107/68
--- NOTE | 2018-11-23 06:50 | NUR ---
Patient in room DELLA 355. I have received report from MARIEL Cox and had the opportunity to ask questions and assume patient care.
--- NOTE | 2018-11-23 06:54 | NUR ---
Problems reprioritized. Patient report given, questions answered & plan of care reviewed with Jud RN.
[2018-11-23] MEDS: K, MAG and/or Phos replacement - Verify level? MC SCH (07:27)
[2018-11-23] MEDS: metoprolol succinate 25mg (24-HOUR) SR. Tablet PO SCH (08:00)
[2018-11-23] MEDS: bethanechol 10mg tablet PO SCH ×2 (08:03→13:51)
[2018-11-23] MEDS: clopidogrel 75mg tablet PO SCH (08:03)
[2018-11-23] MEDS: levoTHYROXINE 75mcg tablet PO SCH (08:04)
[2018-11-23] MEDS: furosemide 20MG tablet PO SCH (08:04)
[2018-11-23] MEDS: ferrous sulfate 325mg tablet PO SCH ×2 (08:04→17:43)
[2018-11-23] MEDS: pantoprazole 40mg Tablet.DR PO SCH (08:04)
[2018-11-23] MEDS: lactobacillus rhamnosus 10,000 MMU CELLS/CAPSULE PO SCH (08:04)
[2018-11-23] MEDS: atorvastatin 10mg tablet PO SCH (08:04)
[2018-11-23] MEDS: docusate sod 100mg capsule PO SCH (08:04)
[2018-11-23] MEDS: heparin, porcine 5000 units/ml vial SQ SCH (08:06)
[2018-11-23] MEDS: potassium Cl 20 mEq SR tablet PO PRN ×3 (08:23→17:43)
[2018-11-23] MEDS: insulin Lispro (HumaLOG) vial - multi-dose SQ SCH ×2 (09:12→13:49)
[2018-11-23] MEDS: levoFLOXACIN 500mg tablet PO SCH (11:25)
[2018-11-23 11:30] VITALS: BP 134/64
[2018-11-23] MEDS ORDERED: LEVO500T89 PO (12:30)
[2018-11-23] MEDS ORDERED: METO-384 PO (12:30)
[2018-11-23] MEDS: HYDROcodone/acetaminophen 5mg/325mg tablet PO PRN (14:40)
--- NOTE | 2018-11-23 16:10 | NUR ---
DC instructions provided to pt.
--- NOTE | 2018-11-23 18:15 | NUR ---
IV DC'd. All belongings sent w/pt. WC to front lobby.
== END 2018-11-23 18:13 | disposition home health service (06) | DRG 871 ==
LOC: ER 23:46 → ED HOLD 11-15 05:22 → EDBEDREQTM 11-16 08:49 → EDBEDREQSVC 11-16 08:49 → EDBEDREQDT 11-16 08:49 → PCU 3S 11-16 10:48 → SUR 3N 11-21 20:22
PROVIDERS: ADMIT Internal Medicine Critical Care Medicine; ATTEND Internal Medicine
PROC: 02HV33Z Insertion of Infusion Device into Superior Vena Cava, Percutaneous Approach (ICD-10-PCS; 2018-11-15)
PROC: B548ZZA Ultrasonography of Superior Vena Cava, Guidance (ICD-10-PCS; 2018-11-15)
PROC: 0Y900ZZ Drainage of Right Buttock, Open Approach (ICD-10-PCS; principal; 2018-11-20)
DX: A41.9 Sepsis, unspecified organism (principal); I21.A1 Myocardial infarction type 2; E43 Unspecified severe protein-calorie malnutrition; I13.0 Hypertensive heart and chronic kidney disease with heart failure and stage 1 through stage 4 chronic kidney disease, or unspecified chronic kidney disease; L02.31 Cutaneous abscess of buttock; I47.1 Supraventricular tachycardia; I69.354 Hemiplegia and hemiparesis following cerebral infarction affecting left non-dominant side; Z68.41 Body mass index [BMI] 40.0-44.9, adult; I48.91 Unspecified atrial fibrillation; E11.22 Type 2 diabetes mellitus with diabetic chronic kidney disease; E89.0 Postprocedural hypothyroidism; I25.10 Atherosclerotic heart disease of native coronary artery without angina pectoris; I25.2 Old myocardial infarction; I45.10 Unspecified right bundle-branch block; I50.9 Heart failure, unspecified; J44.9 Chronic obstructive pulmonary disease, unspecified; G89.29 Other chronic pain; N18.9 Chronic kidney disease, unspecified; Z96.653 Presence of artificial knee joint, bilateral; Z82.3 Family history of stroke; Z85.3 Personal history of malignant neoplasm of breast; Z88.0 Allergy status to penicillin; Z88.1 Allergy status to other antibiotic agents; Z88.8 Allergy status to other drugs, medicaments and biological substances; Z88.6 Allergy status to analgesic agent; Z79.899 Other long term (current) drug therapy; Z95.0 Presence of cardiac pacemaker
CPT/HCPCS: 36415; 71045; 80053; 80202; 81001; 82810; 82948; 83036; 83605; 83735; 83880; 84100; 84132; 84145; 84443; 84484; 85025; 85610; 85730; 87040; 87070; 87077; 87088; 87186; 87502; 87503; 93005; 93306; 94760; 96365; 96366; 96367; 96368; 96375; 99285; G0378; J0153; J1644; J1815; J1956; J2405; J3010; J3370; J3475; J3490; J7030; J7060

== ENCOUNTER 2020-01-02 11:09 | Emergency (ER) | payer MEDICARE, OTHER ==
[~2020-01-02] VITALS: Ht 152.4 cm; Wt 93.0 kg
[~2020-01-02 11:09] MED LIST changes: -LEVO500T2 PO; +LEVO500T89 PO; -MONT10TA24 PO; +MONT10TA26 PO
[2020-01-02 12:07] LABS: BASOPHILS # (AUTO) 0.1 X10'3 (0-0.2); EOSINOPHILS # (AUTO) 0.3 X10'3 (0-0.9); EOSINOPHILS % (AUTO) 6.4 % (0-6); HEMATOCRIT 37.3 % (35.0-45.0); HEMOGLOBIN 12.3 g/dl (12.0-16.0); LYMPHOCYTES # (AUTO) 2.3 X10'3 (1.1-4.8); LYMPHOCYTES % (AUTO) 43.2 % (21-51); MEAN CORPUSCULAR HGB CONC 32.9 g/dL (33.0-36.5); MEAN CORPUSCULAR VOLUME 88.2 FL (78-98); MEAN PLATELET VOLUME 7.5 FL (7.4-10.4); MONOCYTES # (AUTO) 0.6 X10'3 (0-0.9); MONOCYTES % (AUTO) 11.6 % (2-12); NEUTROPHILS % (AUTO) 37.8 % (42-75); PLATELET COUNT 258 X10'3 (140-440); RED BLOOD COUNT 4.23 X10'6 (4.20-5.60); RED CELL DISTRIBUTION WIDTH 15.2 % (11.5-14.5); WHITE BLOOD COUNT 5.4 X10'3 (4.5-11.0)
[2020-01-02 12:19] LABS: PARTIAL THROMBOPLASTIN TIME 35 SECONDS (22-32)
[2020-01-02 12:26] LABS: ALANINE AMINOTRANSFERASE 27 U/L (12-78); ALBUMIN 3.4 G/DL (3.4-5.0); ALBUMIN/GLOBULIN RATIO 0.9 (1.1-1.5); ALKALINE PHOSPHATASE 89 IU/L (46-116); ANION GAP 9 (8-16); ASPARTATE AMINO TRANSFERASE 28 U/L (10-37); BILIRUBIN,TOTAL 0.4 MG/DL (0.1-1.0); BLOOD UREA NITROGEN 15 MG/DL (7-18); BUN/CREATININE RATIO 18.1 (6.6-38.0); CALCIUM 8.4 MG/DL (8.5-10.1); CHLORIDE 109 MMOL/L (99-107); CREATININE 0.83 MG/DL (0.40-0.90); GLUCOSE 95 MG/DL (70-104); POTASSIUM 3.6 MMOL/L (3.5-5.1); SODIUM 146 MMOL/L (135-145); TOTAL CARBON DIOXIDE 28.4 MMOL/L (24-32); TOTAL PROTEIN 7.2 G/DL (6.4-8.2); eGFR 69 ML/MIN
[2020-01-02] MEDS ORDERED: PRED20TA PO (12:30)
[2020-01-02 13:29] VITALS: BP 95/0
== END 2020-01-02 13:42 | disposition home or self-care (01) ==
LOC: ER 11:10
DX: J44.1 Chronic obstructive pulmonary disease with (acute) exacerbation (principal); J06.9 Acute upper respiratory infection, unspecified; B97.89 Other viral agents as the cause of diseases classified elsewhere; Z86.73 Personal history of transient ischemic attack (TIA), and cerebral infarction without residual deficits; I48.91 Unspecified atrial fibrillation; I25.10 Atherosclerotic heart disease of native coronary artery without angina pectoris; I13.0 Hypertensive heart and chronic kidney disease with heart failure and stage 1 through stage 4 chronic kidney disease, or unspecified chronic kidney disease; I50.9 Heart failure, unspecified; I25.2 Old myocardial infarction; N18.9 Chronic kidney disease, unspecified; E11.22 Type 2 diabetes mellitus with diabetic chronic kidney disease; E03.9 Hypothyroidism, unspecified; G89.29 Other chronic pain; Z98.890 Other specified postprocedural states; Z95.0 Presence of cardiac pacemaker; Z72.89 Other problems related to lifestyle; Z88.0 Allergy status to penicillin; Z88.2 Allergy status to sulfonamides; Z79.2 Long term (current) use of antibiotics; Z88.8 Allergy status to other drugs, medicaments and biological substances; Z79.4 Long term (current) use of insulin; Z79.899 Other long term (current) drug therapy
CPT/HCPCS: 36415; 71045; 80053; 83880; 85025; 85610; 85730; 87502; 87503; 99284

== ENCOUNTER 2020-09-22 15:09 | Emergency (ER) | payer MEDICARE, OTHER ==
[~2020-09-22] VITALS: Ht 152.4 cm; Wt 89.5 kg
[~2020-09-22 15:09] MED LIST changes: -PANT40TA4 PO; +PANT40TA54 PO
[2020-09-22 15:59] VITALS: BP 164/68
== END 2020-09-22 16:35 | disposition home or self-care (01) ==
LOC: ER 15:09
DX: B34.9 Viral infection, unspecified (principal); R05 Cough; R43.8 Other disturbances of smell and taste; R51.9 Headache, unspecified; R53.83 Other fatigue; Z20.828 Contact with and (suspected) exposure to other viral communicable diseases; I48.91 Unspecified atrial fibrillation; I25.10 Atherosclerotic heart disease of native coronary artery without angina pectoris; I25.2 Old myocardial infarction; J44.9 Chronic obstructive pulmonary disease, unspecified; E03.9 Hypothyroidism, unspecified; G89.29 Other chronic pain; I13.0 Hypertensive heart and chronic kidney disease with heart failure and stage 1 through stage 4 chronic kidney disease, or unspecified chronic kidney disease; E11.22 Type 2 diabetes mellitus with diabetic chronic kidney disease; N18.9 Chronic kidney disease, unspecified; Z86.73 Personal history of transient ischemic attack (TIA), and cerebral infarction without residual deficits; Z95.0 Presence of cardiac pacemaker; Z98.890 Other specified postprocedural states; Z72.89 Other problems related to lifestyle; Z88.0 Allergy status to penicillin; Z88.2 Allergy status to sulfonamides; Z88.8 Allergy status to other drugs, medicaments and biological substances; Z88.1 Allergy status to other antibiotic agents; Z79.4 Long term (current) use of insulin; Z79.899 Other long term (current) drug therapy
CPT/HCPCS: 36415; 87635; 99283